=== PATIENT | male | born 1985 | race Caucasian/White ===

== ENCOUNTER 2019-11-23 09:28 | Observation (INO) ==
--- OUTSIDE RECORDS SUMMARY | 2019-11-23 09:31 | External Medical Summary | Continuity of Care Document ---
:1985 Author Name Magalis Abrams Address Unavailable Unavailable , Care Team Providers Name Role Phone Laurent Brian M.D. Unavailable [email or web address], [email or web address] Unavailable Unavailable Problems Active medical history not documented Allergies and Adverse Reactions Allergy history not documented Medications Medications not documented Procedures Procedures not documented Immunizations Immunizations not documented Plan of Treatment Planned Observations Planned Goals not documented Results No Known Results Results not documented
--- OUTSIDE RECORDS SUMMARY | 2019-11-23 09:32 | External Medical Summary | Continuity of Care Document ---
:1985 Author Name Magalis Abrams Address Unavailable Unavailable , Care Team Providers Name Role Phone Laurent Brian M.D. Unavailable [email or web address] PCP, UNKNOWN Unavailable Unavailable Problems Active medical history not documented Allergies and Adverse Reactions Allergy history not documented Medications Medications not documented Procedures Procedures not documented Immunizations Immunizations not documented Plan of Treatment Planned Observations Planned Goals not documented Results No Known Results Results not documented
--- NOTE | 2019-11-23 10:00 | Emergency Department Note ---
Impression & Plan Incarcerated inguinal hernia ED Provider Note INFORMANT: Patient ED PROVIDER(S): Juan Francisco Hernández MD CHIEF COMPLAINT: Left sided hernia PLAN: Disposition: Admitted Condition: Good MEDICAL DECISION MAKING: Patient presented with complaints of a left inguinal hernia. On physical examination this was nonreducible. Blood work was obtained. The patient initially declined analgesia but was eventually given Dilaudid and Zofran. I did place an urgent consultation with Dr. Whyte of general surgery. He did asked for a CT scan to be ordered. Triage Nursing notes reviewed and agree them. Vital Signs: reviewed and remarkable for no significant abnormalities Differential diagnosis: hernia, Testicular torsion, mass, infection, hydrocele, epididymitis, STI, trauma, intra-abdominal process, as well as other pathologies. Diagnostics interpreted by me: Laboratory testing reveals an unremarkable CBC and chemistry panel. Imaging studies: CT scan of the abdomen pelvis reveals an incarcerated left inguinal hernia. Consultation(s): General surgery HPI: The patient is a 34 year old male who presents to the Emergency Room with complaints of left inguinal hernia that is not reducing. This started last night and is persistent. He notes hernia there for a few years but it would always go back in place. The patient also notes the following associated symptoms, none. The patient has found no relieving factors. Current pain is rated as 10/10. Pt denies LOC, headache, fevers, chills, diaphoresis, visual changes, neck pain, chest pain, breathing difficulties, nausea, vomiting, abdominal pain, back pain, melena, hematochezia, urinary symptoms, numbness, weakness, lymphadenopathy, rash, or other complaints. ROS: See above HPI for pertinent positives & negatives. A total of 10 systems reviewed and were otherwise negative. PAST MEDICAL HISTORY:See Below hernia PAST SURGICAL HISTORY:See Below FAMILY HISTORY:See Below SOCIAL HISTORY:See Below +ETOH, +Tob HOME MEDICATIONS:See Below ALLERGIES:See Below PCN VITALS:See Below PHYSICAL EXAMINATION: GENERAL: Awake, alert, uncomfortable-appearing, in no distress HENT: Normocephalic, atraumatic. Oropharynx unremarkable. EYES: Normal conjunctiva. Sclera non-icteric. NECK: Inspection normal. Non-tender. Supple. No nuchal rigidity. FROM. No masses. RESPIRATORY: Clear to auscultation. No wheezes. No rales. Normal respiratory effort. CARDIAC: Normal rate. Normal rhythm. No murmurs. No rubs. Extremities warm and well perfused. Pulses equal. No JVD. GI: Soft, non-distended. No tenderness to palpation. No rebound or guarding. No masses. : Left non-reducible inguinal hernia present. TTP. MUSCULOSKELETAL: Atraumatic. Chest examination reveals no tenderness. The back is symmetrical on inspection without obvious abnormality. There is no CVA tenderness to palpation. No joint edema. LOWER EXTREMITIES: Calves are equal size bilaterally and non-tender. No edema. N o discoloration. NEURO: Normal sensorium. No sensory or motor deficits noted. SKIN: No rash or jaundice noted. ED COURSE: Critical Care: None Juan Francisco Hernández MD Past Med/Surg History Social History Smoking Status: Never smoker Second Hand Exposure: No; Do You Dip or Chew Tobacco: No; Tobacco Cessation Education Requested by Patient: No Hx Alcohol Use: Yes Hx Substance Use: No Preferred Language: French Communication Ability: Effective Head Of Geography Required: No Beliefs That Will Affect Care: None Current Living Situation: Significant Other Other Information That Helps Us Care for You: No Feels Safe at Home: Yes Safety Concerns: Feels Safe At This Time Allergies Allergies Allergy/AdvReac Type Severity Reaction Status Date / Time Penicillins Allergy Unknown RASH Unverified 11/30/11 15:57 scallops AdvReac Severe ANAPHYLAXIS Verified 11/30/11 20:56 Home Meds Home Medications Medication Instructions Recorded Confirmed None (Patient States No Home Meds) #0 11/30/11 Previous Rx's Medication Instructions Recorded ASPIRIN ENTERIC COATED (Ecotrin Or 325 mg PO BID #60 12/01/11 Generic) acetaminophen [Tylenol] 650 mg PO Q6H #30 cap 11/23/19 ibuprofen 400 mg PO Q8H PRN #30 tab 11/23/19 oxycodone 5 mg PO Q6H PRN #15 cap 11/23/19 Results & Data (ED) Vital Signs Vital Signs - 24 hr 11/23/19 09:32 11/23/19 12:33 Temperature 36.7 C Temperature Source Oral Pulse Rate 60 84 Respiratory Rate 18 18 Respiratory Depth Normal Blood Pressure 141/85 H 142/91 H Blood Pressure Mean 103 Pulse Oximetry 99 100 Oxygen Delivery Method Room Air Room Air Sepsis Recent Fever Within 48 Hours No Sepsis New/Unexplained Change in Mental Status N/A Sepsis Action Taken by Nursing No Action Required Laboratory Data Result diagrams: 11/23/19 11:03 11/23/19 11:03 Lab Results 11/23/19 11/23/19 11/23/19 Range/Units 11:03 11:03 11:03 WBC 8.13 (4.8-10.8) K/uL RBC 5.11 (4.7-6.1) M/uL Hgb 16.4 (14.0-18.0) g/dL Hct 47.2 (42-52) % MCV 92.4 (80-100) fL MCH 32.1 (25-34) pg MCHC 34.7 (32-36) g/dL RDW Std Deviation 43.9 (36.4-46.3) fL RDW Coeff of Reinaldo 13.0 (11.5-14.5) % Plt Count 227 (130-400) K/uL MPV 10.5 H (7.4-10.4) fL Immature Gran % (Auto) 0.7 % Neut % (Auto) 69.8 % Lymph % (Auto) 20.0 % Harmon % (Auto) 7.4 % Eos % (Auto) 1.4 % Baso % (Auto) 0.7 % Neut # (Auto) 5.67 (1.4-6.5) K/uL Lymph # (Auto) 1.63 (1.2-3.4) K/uL Harmon # (Auto) 0.60 H (0.11-0.59) K/uL Eos # (Auto) 0.11 (0-0.5) K/uL Baso # (Auto) 0.06 (0-0.2) K/uL Immature Gran # (Auto) 0.06 H (0.00-0.02) K/uL Sodium 137 (136-145) mmol/L Potassium 3.9 (3.5-5.1) mmol/L Chloride 103 (98-107) mmol/L Carbon Dioxide 30 (21-32) mmol/L Anion Gap 4.0 (3-11) BUN 13 (7-18) mg/dl Creatinine 0.89 (0.6-1.4) mg/dl Est Cr Clr Drug Dosing 129.6 ml/min Est GFR ( Amer) 130.2 Est GFR (Non-Af Amer) 112.3 BUN/Creatinine Ratio 14.2 (10-20) Glucose 99 (70-99) mg/dl Lactate 0.6 (0.4-2.0) mmol/L Calcium 9.1 (8.5-10.1) mg/dl Total Bilirubin 1.2 H (0.2-1) mg/dl AST 23 (15-37) U/L ALT 25 (12-78) U/L Alkaline Phosphatase 57 (45-117) U/L Total Protein 7.8 (6.4-8.2) gm/dl Albumin 3.8 (3.4-5.0) gm/dl Globulin 4.0 (2.5-4.0) gm/dl Albumin/Globulin Ratio 1.0 (0.9-2) COVID-19 Eval Order SARS-CoV-2, RNA, NAAT (NEGATIVE) 11/23/19 11/23/19 Range/Units 12:25 12:25 WBC (4.8-10.8) K/uL RBC (4.7-6.1) M/uL Hgb (14.0-18.0) g/dL Hct (42-52) % MCV (80-100) fL MCH (25-34) pg MCHC (32-36) g/dL RDW Std Deviation (36.4-46.3) fL RDW Coeff of Reinaldo (11.5-14.5) % Plt Count (130-400) K/uL MPV (7.4-10.4) fL Immature Gran % (Auto) % Neut % (Auto) % Lymph % (Auto) % Harmon % (Auto) % Eos % (Auto) % Baso % (Auto) % Neut # (Auto) (1.4-6.5) K/uL Lymph # (Auto) (1.2-3.4) K/uL Harmon # (Auto) (0.11-0.59) K/uL Eos # (Auto) (0-0.5) K/uL Baso # (Auto) (0-0.2) K/uL Immature Gran # (Auto) (0.00-0.02) K/uL Sodium (136-145) mmol/L Potassium (3.5-5.1) mmol/L Chloride (98-107) mmol/L Carbon Dioxide (21-32) mmol/L Anion Gap (3-11) BUN (7-18) mg/dl Creatinine (0.6-1.4) mg/dl Est Cr Clr Drug Dosing ml/min Est GFR ( Amer) Est GFR (Non-Af Amer) BUN/Creatinine Ratio (10-20) Glucose (70-99) mg/dl Lactate (0.4-2.0) mmol/L Calcium (8.5-10.1) mg/dl Total Bilirubin (0.2-1) mg/dl AST (15-37) U/L ALT (12-78) U/L Alkaline Phosphatase (45-117) U/L Total Protein (6.4-8.2) gm/dl Albumin (3.4-5.0) gm/dl Globulin (2.5-4.0) gm/dl Albumin/Globulin Ratio (0.9-2) COVID-19 Eval [facility] SARS-CoV-2, RNA, NAAT NEGATIVE (NEGATIVE) Administered Medications Hydromorphone HCl (Hydromorphone Inj 0.5 Mg/0.5 Ml Syr) 0.5 mg IV Q15M PRN PRN Reason: Pain Stop: 12/07/19 11:42 Last Admin: 11/23/19 12:13 Dose: 0.5 mg Documented by: [id number] Acetaminophen ([facility]) 1,000 mg in 100 mls @ 400 mls/hr IV Q8H BRENDEN Stop: 11/26/19 15:48 Last Admin: 11/23/19 17:23 Dose: 400 mls/hr Documented by: [id number] Oxycodone HCl (Oxycodone Hcl Ir 5 Mg Tab (Immediate Release)) 5 mg PO Q6H PRN PRN Reason: Pain Stop: 12/07/19 15:48 Last Admin: 11/23/19 17:22 Dose: 5 mg Documented by: [id number] Discontinued Medications Bupivacaine HCl (Bupivacaine 0.5 % 5 Mg/1 Ml Mpf 30ml Vial) Confirm Administered Dose 30 ml .ROUTE .STK-MED ONE Stop: 11/23/19 12:53 Last Admin: 11/23/19 14:13 Dose: 30 ml Documented by: [id number] Fentanyl Citrate (Fentanyl Citrate 100 Mcg/2 Ml Vial) 50 mcg IV Q5M PRN PRN Reason: PACU Use Only-Pain Stop: 11/23/19 20:52 Last Admin: 11/23/19 15:06 Dose: 50 mcg Documented by: [id number] Admin: 11/23/19 14:50 Dose: 50 mcg Documented by: [id number] Sodium Chloride (Nss 1000ml) 1,000 mls @ 999 mls/hr IV .Q1H1M ONE Stop: 11/23/19 11:06 Last Infusion: 11/23/19 16:04 Dose: 0 mls/hr Documented by: [id number] Admin: 11/23/19 11:36 Dose: 999 mls/hr Documented by: [id number] Cefazolin Sodium (Ancef 2000mg) 2,000 mg in 15 mls @ 3.75 mls/min IV ONCE ONE Stop: 11/23/19 13:46 Last Admin: 11/23/19 13:24 Dose: 3.75 mls/min Documented by: [id number] Ioversol (Ioversol 100ml) 93 ml IV ONCE ONE Stop: 11/23/19 12:00 Last Admin: 11/23/19 11:59 Dose: 93 ml Documented by: [id number] Ondansetron HCl (Ondansetron Inj 2 Mg/Ml 2 Ml Vial) 4 mg IV NOW STA Stop: 11/23/19 11:44 Last Admin: 11/23/19 12:13 Dose: 4 mg Documented by: [id number] Discharge Plan Visit Data Chief Complaint: Testicular Pain Stated Complaint: PAINFUL HERNIA ED Provider: Juan Francisco Hernández Discharge Problem: Incarcerated inguinal hernia Patient Disposition: Admitted As Inpatient Condition: Good Discharge Instructions Interventions: ED Discharge Assessment Last Done: 11/23/19 12:33
[2019-11-23] MEDS ORDERED: SODIUM CHLORIDE 0.9% 1000ML 1,000 ML IV ONE (10:06)
--- NOTE | 2019-11-23 11:04 | History & Physical Report ---
Date of Service November 23, 2019 Assessment & Plan (1) Incarcerated inguinal hernia: 34-year-old male with incarcerated left inguinal hernia Plan for diagnostic laparoscopy, laparoscopic left inguinal hernia repair, possible open, possible bowel resection The risk of the procedure were discussed to include but not limited to bleeding, infection, open surgery, damage to surrounding structures, recurrence, need for future more extensive surgery, bowel resection, chronic pain, and the risk of anesthesia History of Present Illness Primary Care Provider: NO PCP 34-year-old male with known left inguinal hernia presented to the emergency department with incarcerated hernia. He has had the hernia for several years. It occasionally bulges out but he is able to reduce it. Last night he came home and noted that it was bulging out more than normal. He tried for several hours to reduce it but was unsuccessful. He then started having significant pain. He denies any vomiting or signs or symptoms of obstruction. He denies any redness in the area. He has never had any abdominal surgery before. He is otherwise healthy. He does smoke marijuana. Allergies Allergy/AdvReac Type Severity Reaction Status Date / Time Penicillins Allergy Unknown RASH Unverified 11/30/11 15:57 scallops AdvReac Severe ANAPHYLAXIS Verified 11/30/11 20:56 Home Medications Home Medications Medication Instructions Recorded Confirmed Type None (Patient States No Home Meds) #0 11/30/11 History ASPIRIN ENTERIC COATED (Ecotrin Or 325 mg PO BID #60 12/01/11 Rx Generic) Past Med/Surg History Social History Smoking Status: Never smoker Feels Safe at Home: Yes Physical Exam Constitutional: WD/WN, vitals as above Eyes: PERRL, conjunctivae normal, anicteric sclerae ENMT: external ear and nose normal, oropharynx normal Neck: trachea midline, no thyromegaly Respiratory: normal respiratory effort, lungs clear to auscultation Cardiovascular: RRR, no murmur, no edema Gastrointestinal (Abdomen): Percussion/Palpation: + abdomen tender, abdomen soft and + hernia (Incarcerated moderate size left inguinal hernia. I was unable to reduce this after 5 to 10 minutes of attempt. No erythema or signs of strangulation.); no guarding, abdomen not rigid and no hepatosplenomegaly Results & Data Results & Data ([facility]) Vital Signs (Past 12 Hours) Vital Signs Temp Pulse Resp BP Pulse Ox 11/23/19 09:32 36.7 C 60 18 141/85 H 99 PG Care Time/CCT Total # of Minutes Spent Total Time Spent with Patient: Total time spent is greater than 50% in coordination of care (as documented) at patient's floor/unit and/or counseling patient: Coding Level of Care Code 79173 Initial Inpt Care Lvl 2 Diagnoses Incarcerated inguinal hernia K40.30
[2019-11-23 11:19] LABS: Basophils # (auto) 0.06 K/uL (0-0.2); Basophils % (auto) 0.7 %; Eosinophils # (auto) 0.11 K/uL (0-0.5); Eosinophils % (auto) 1.4 %; Hematocrit (blood only) 47.2 % (42-52); Hemoglobin 16.4 g/dL (14.0-18.0); Immature Granulocytes # (auto) 0.06 K/uL (0.00-0.02); Immature Granulocytes % (auto) 0.7 %; Lymphocytes # (auto) 1.63 K/uL (1.2-3.4); Mean Corpuscular Hemoglobin 32.1 pg (25-34); Mean Corpuscular Hgb Conc 34.7 g/dL (32-36); Mean Corpuscular Volume 92.4 fL (80-100); Mean Platelet Volume 10.5 fL (7.4-10.4); Monocytes % (auto) 7.4 %; Neutrophils # (auto) 5.67 K/uL (1.4-6.5); Neutrophils % (auto) 69.8 %; Platelet Count 227 K/uL (130-400); RDW Standard Deviation 43.9 fL (36.4-46.3); Red Blood Count 5.11 M/uL (4.7-6.1); White Blood Count 8.13 K/uL (4.8-10.8)
[2019-11-23 11:38] LABS: Albumin Level 3.8 gm/dl (3.4-5.0); BUN Creatinine Ratio 14.2 (10-20); Calcium 9.1 mg/dl (8.5-10.1); Creatinine Clr Calc Pharmacy 129.6 ml/min; Est GFR (African American) 130.2; Est GFR (Non-African American) 112.3; Potassium 3.9 mmol/L (3.5-5.1)
[2019-11-23 11:42] LABS: Bilirubin,Total 1.2 mg/dl (0.2-1); Total Protein 7.8 gm/dl (6.4-8.2)
[2019-11-23] MEDS ORDERED: ONDANSETRON INJ 2 MG/ML 2 ML VIAL IV STA (11:43)
[2019-11-23] MEDS ORDERED: HYDROmorphone INJ 0.5 MG/0.5 ML SYR IV PRN (11:43)
[2019-11-23] MEDS ORDERED: IOVERSOL 100ml IV ONE (11:59)
--- NOTE | 2019-11-23 12:13 | CT Scan Report ---
CT OF THE ABDOMEN AND PELVIS WITH CONTRAST CLINICAL HISTORY: Left incarcerated inguinal hernia COMPARISON STUDY: CT of the abdomen and pelvis November 30, 2011 TECHNIQUE: Following IV administration of 93 mL of Optiray-320, axial images of the abdomen and pelvi s were obtained from the lung bases to the proximal femurs. Images were reviewed in the axial, sagitt al, and coronal planes. IV contrast was administered without complication. Automated exposure contro l was utilized for the study. A dose lowering technique was utilized adhering to the principles of A JORY. CT DOSE: 611.35 mGycm FINDINGS: Lung bases are unremarkable. Note is made of a 1.1 cm right hepatic dome hypodense lesion w ith nodular peripheral enhancement. This may reflect a hemangioma. A 9 mm right hepatic dome lesion f avors a cyst. These lesions are difficult to characterize given their small size. Liver morphology is normal. The spleen, adrenal glands, kidneys and pancreas are normal. There is no hydronephrosis. The re is no biliary or pancreatic ductal dilatation. The caliber and wall thickness of small and large b owel are normal. There is no evidence for a bowel obstruction. The appendix is normal. Note is made o f a moderate to large fat-containing left inguinal hernia. There is also fluid and infiltration withi n the hernia sac. Infiltration extends into the inguinal canal and left lower quadrant. There is no r im-enhancing fluid collection is suggest an abscess. There is no lymphadenopathy. No suspicious osseo us lesions are noted. Major vasculature is patent. IMPRESSION: 1. Moderate to large fat and fluid containing left inguinal hernia. Infiltration within the hernia sa c and left inguinal canal which extends into the left lower quadrant. Findings are consistent with hi story of incarcerated hernia. 2. No bowel obstruction. Normal appendix. No bowel wall thickening. ACT 112: Negative or not required by law. Electronically signed by: Melquiades Mccray M.D. 11/23/2019 12:12 PM
[2019-11-23] MEDS ORDERED: ONDANSETRON INJ 2 MG/ML 2 ML VIAL ONE (12:50)
[2019-11-23] MEDS ORDERED: fentaNYL citrate 100 MCG/2 ML VIAL ONE (12:50)
[2019-11-23] MEDS ORDERED: DEXAMETHASONE SOD INJ 4 MG/ML VIAL ONE (12:50)
[2019-11-23] MEDS ORDERED: MIDAZOLAM HCL 1 MG/ML 2ML VIAL ONE (12:50)
[2019-11-23] MEDS ORDERED: PROPOFOL IV EMULSION 10 MG/ML 20 ML VIAL IV ONE (12:50)
[2019-11-23] MEDS ORDERED: LIDOCAINE HCL 2% 2 ML VIAL/AMP(20MG/ML) INFIL ONE (12:50)
[2019-11-23] MEDS ORDERED: NEOSTIGMINE METHYLSULFATE 5 MG/5 ML SYR ONE (12:50)
[2019-11-23] MEDS ORDERED: GLYCOPYRROLATE 0.2 MG/ML VIAL ONE ×2 (12:50→14:12)
[2019-11-23] MEDS ORDERED: ATROPINE SULFATE 0.1 MG/ML 10ML SYR IV PRN (12:52)
[2019-11-23] MEDS ORDERED: HYDROmorphone INJ 2 MG/ML SYR/VIAL IV PRN (12:52)
[2019-11-23] MEDS ORDERED: ePHEDrine sulfate 50 MG/ML AMP IV PRN (12:52)
[2019-11-23] MEDS ORDERED: BUPIVACAINE 0.5 % 5 MG/1 ML MPF 30ML VIAL ONE (12:52)
[2019-11-23] MEDS ORDERED: ONDANSETRON INJ 2 MG/ML 2 ML VIAL IV PRN ×2 (12:52→15:49)
--- NOTE | 2019-11-23 12:52 | Anesthesiology Consultation ---
Date of Service November 23, 2019 Assessment & Plan ASA ASA2E Proposed Anesthesia Anesthesia Type: General Risk / Benefits Reviewed With: PT / POA / Parent / Guardian, Accepts Plan and Informed Consent Obtained History Surgery Operation Date: 11/23/19 14:00 Proposed Procedures p Laparoscopic Inguinal Hernia Repair(Left) - Lorne Whyte DO, FACS Height/Weight Height: 6 ft Weight: 81.1 kg Allergies Allergy/AdvReac Type Severity Reaction Status Date / Time Penicillins Allergy Unknown RASH Unverified 11/30/11 15:57 scallops AdvReac Severe ANAPHYLAXIS Verified 11/30/11 20:56 Medications Home Medications Medication Instructions Recorded Confirmed Last Taken None (Patient States No Home Meds) #0 11/30/11 Unknown ASPIRIN ENTERIC COATED (Ecotrin Or 325 mg PO BID #60 12/01/11 Unknown Generic) Active Medications Generic Name Dose Route Start Last Admin Trade Name Freq PRN Reason Stop Dose Admin Hydromorphone HCl 0.5 mg 11/23/19 11:43 11/23/19 12:13 Hydromorphone Inj 0.5 Mg/0.5 Ml Syr IV 12/07/19 11:42 0.5 mg Q15M PRN Administration Pain Exercise / Class Metabolic Activity II 4-5 Yardwork/Stairs/Walk up hill Past Anesthesia History No Hx of Anesthesia Complications and No Family Hx of Anesthesia Complications History of PONV No Hx of PONV and No Hx of Motion Sickness Social History Smoking Status: Never smoker Do You Dip or Chew Tobacco: No Hx Alcohol Use: Yes alcohol intake frequency: 0-2 drinks per day Hx Substance Use: No substance use type: does not use Review of Systems denies fever/cough/ colds/ chest pain/ SOB/ SAVANNA Constitutional: no fever and no chills Respiratory: no cough and no dyspnea denies SAVANNA Cardiovascular: no chest pain and no dyspnea on exertion Physical Exam Vital Signs Last Vital Signs Temp 36.7 C 11/23/19 09:32 Pulse 84 11/23/19 12:33 Resp 18 11/23/19 12:33 BP 142/91 H 11/23/19 12:33 Pulse Ox 100 11/23/19 12:33 ENMT Mouth: no TMJ abnormality and no dentition abnormality Thyromental Distance: > or= 3.5 Finger Breadths Mallampati Class: II Neck neck extension not limited Respiratory normal respiratory effort; no respiratory distress Auscultation: lungs clear to auscultation bilaterally Cardiovascular Rate/Rhythm: regular rate and regular rhythm Neurologic moves all extremities Psychiatric Orientation: alert and oriented x 3 Testing Laboratory Results 11/23/19 11:03 11/23/19 11:03
[2019-11-23] MEDS ORDERED: CEFAZOLIN 2000MG 2,000 MG/15 ML SYR IV ONE (13:43)
[2019-11-23] MEDS ORDERED: ROCURONIUM BROMIDE 10 MG/ML 5 ML VIAL IV ONE (14:04)
--- NOTE | 2019-11-23 14:26 | Operative Report ---
PG Post Operative Report Pre & Post Diagnosis Operation Date: 11/23/19 14:00 Pre-Op Diagnosis: Incarcerated left inguinal hernia Post-Op Diagnosis: Incarcerated left inguinal hernia I identified the patient and participated in the time-out.: Yes Procedure Operation Date: 11/23/19 14:00 Actual Procedures p Diagnostic Laparoscopy, Reduction of Incarcerated Inguinal Hernia, Left Laparoscopic Inguinal Hernia Repair with Mesh(Left) - Lorne Whyte DO, CHAVO Surgeon Lorne Whyte DO, CHAVO Manufacturing Development Engineer Armen Betancourt Estimated Blood Loss 5 Findings Consistent with Post-Op Diagnosis Diagnostic laparoscopy performed, incarcerated omentum reduced, appeared viable. Laparoscopic totally extraperitoneal left inguinal hernia repair performed with pro-supplier development manager mesh. Large direct hernia sac reduced. Reentered laparoscopically and omentum viable, hernia defect repaired. No evidence of right inguinal hernia at the time of surgery. Specimens None Anesthesia Type General Complications none Disposition Accompanied Patient To Recovery: No Disposition: Recovery Room Indications 34-year-old male presented to the emergency department with 6 hours of left groin bulge and pain consistent with an incarcerated left inguinal hernia. CT scan revealed incarcerated omentum within a left inguinal hernia. Plan for diagnostic laparoscopy, laparoscopic left inguinal hernia repair, possible open, possible bowel resection. The risks of the procedure were discussed, all questions were answered, and the patient agreed to proceed with surgery as planned. Description of Procedure The patient was properly identified, consented, and taken to the operating room where he was placed in the supine position. General endotracheal anesthesia was induced. SCDs and a safety belt were placed. A dunaway catheter was placed. Preoperative antibiotics were administered. The patient's groins and abdomen were prepped and draped in the standard sterile fashion. Surgical timeout was performed and all parties were in agreement that this was the correct patient and procedure to be performed and we continued as planned. An incision was made in the right upper quadrant and the Veress needle was inserted. Saline drop test confirmed entry into the peritoneum. The abdomen was insufflated with carbon dioxide which the patient tolerated without incident. The abdomen was then entered using the Optiview technique and a 5 mm trocar. The laparoscope was inserted and no damage from initial trocar or Veress needle placement was noted. There was evidence of a left indirect inguinal hernia containing omentum. I was unable to reduce this with external pressure in the groin, and an additional 5 mm port was then placed in the left upper quadrant. Using external pressure along with reduction of the omentum laparoscopically we were able to reduce the incarcerated omentum. The omentum was examined and appeared viable. There was no bowel contained within the hernia. No other gross abnormalities were noted within the 4 quadrants of the abdomen. A quick examination of the right inguinal area revealed no evidence of inguinal hernia at the time of surgery. At this point I elected to convert to my standard totally extraperitoneal hernia repair. A transverse infraumbilical incision was made to the right of midline with electrocautery and deepened down to the fascia with blunt dissection. A transverse incision was made in the anterior rectus sheath on the right. The rectus muscle was pulled laterally exposing the posterior rectus sheath. A large Josselin was used to bluntly dissect the preperitoneal space down to the pubic symphysis. This was then replaced with a laparoscopic preperitoneal dissection balloon, which was inflated under direct visualization and held in place for approximately 30 seconds. This was then removed and the preperitoneal space was insufflated with carbon dioxide which the patient tolerated without incident. Two 5 mm ports were then placed in the midline. Dissection started on the left, beginning laterally at the anterior superior iliac spine. Sonu's ligament was then dissected medially. The cord structures were circumferentially dissected. A large indirect inguinal hernia was noted. It was dissected away from the cord structures. The hernia sac was completely reduced. Progrip mesh was placed on the left and covered the direct, indirect, and femoral spaces. The mesh was held in place, the ports were removed, and the space was allowed to collapse. We then reentered the abdomen laparoscopically and the hernia defect was repaired. The omentum was again examined and appeared healthy. Laparoscopy was ceased and the abdomen was allowed to collapse. The anterior rectus sheath fascia was closed with 3-0 Vicryl suture. The skin of all port sites were closed with 4-0 Monocryl subcuticular suture, and Dermabond was placed over the incisions. The patient was extubated in the operating room and taken to the PACU for recovery without apparent incident. Any air in the scrotum was reduced, and the testicles were confirmed to be in the scrotum. All sponge, instrument, and nee dle counts were correct at the conclusion of the procedure. The patient tolerated the procedure well. The physician's digital assistant was present and scrubbed for the entirety of the case. He was critical in positioning the patient, prepping and draping, retraction and exposure, driving the laparoscope, reduction of the hernia, closure the incisions, and placement of the dressings. I attest to the content of the Intraoperative Record and any orders documented therein. Any exceptions are noted below.
[2019-11-23] MEDS ORDERED: KETOROLAC 30 MG/ML VIAL ONE (14:45)
[2019-11-23] MEDS: fentaNYL citrate 100 MCG/2 ML VIAL IV PRN ×2 (14:50→15:06)
--- NOTE | 2019-11-23 14:54 | Anesthesiology Progress Note ---
Date of Service November 23, 2019 Anesthesia Post Procedure Vital Signs Vital Signs: Temp Pulse Pulse Resp BP BP Pulse Ox 11/23/19 14:50 54 L 14 123/76 97 11/23/19 14:40 54 L 16 134/64 100 11/23/19 14:34 36.8 C 69 16 128/80 98 11/23/19 12:33 84 18 142/91 H 100 11/23/19 09:32 36.7 C 60 18 141/85 H 99 Transfer of Care Handoff Completed per policy Notes Mental Status: alert / awake / arousable and participated in evaluation Patient Amnestic to Procedure: Yes Nausea / Vomiting: adequately controlled Pain: adequately controlled Airway Patency, RR, SpO2: stable & adequate BP & HR: stable & adequate Hydration State: stable & adequate Anesthetic Complications: no major complications apparent and Pt Satisfied with anesthetic care
[2019-11-23] MEDS ORDERED: ACETAMINOPHEN 1,000 MG/100 ML VIAL IV SCH (15:49)
[2019-11-23] MEDS ORDERED: OXYCODONE HCL IR 5 MG TAB (IMMEDIATE RELEASE) PO PRN (15:49)
[2019-11-23] MEDS ORDERED: MoRPHine SULFATE 2 MG/ML CARP IV PRN (15:49)
[2019-11-23] MEDS ORDERED: KETOROLAC TROMETHAMINE 15 MG/ML VIAL IV SCH (22:00)
--- NOTE | 2019-11-26 14:55 | Discharge Summary (DS) ---
ADMISSION DIAGNOSIS: Incarcerated left inguinal hernia. DISCHARGE DIAGNOSIS: Same. HOSPITAL COURSE: This is a 34-year-old male who presented to [facility] Emergency Department secondary to incarcerated hernia in the left inguinal region. Prior to admission, the patient noted he had a hernia for several years that occasionally bulges out bout he was able to reduce it. The patient noted that prior to presentation to the Emergency Department, he had more of a hernia bulge than normal and he was unable to reduce it. He started having some significant abdominal pain prompting his presentation to [facility] Emergency Department. In the Emergency Department the patient did have a CT scan of his abdomen and pelvis. This demonstrated he had a large fat-containing left inguinal hernia. This was felt to be incarcerated, so on date of admission, Dr. Whyte took the patient to the operating room where he performed a laparoscopic reduction and repair of this inguinal hernia. Postoperatively the patient did not have any complications, was tolerating a regular diet, was able to void and he was deemed stable for discharge home the same day of his procedure, which was 11/23/2019. The patient did not have any home medications changed. He was told he could take Tylenol and Motrin for pain. He was also provided a prescription for a short course of oxycodone 5 mg every 6 hours as needed for pain. He was provided with appropriate wound care instructions. He was also told not to lift any objects heavier than 10 pounds. He was told he could shower in approximately 24 hours, but not take any tub baths. He is told to call the office of Dr. Whyte to arrange a 2-week followup appointment.
== END 2019-11-23 18:40 | disposition home or self-care (01) ==
LOC: ED 09:28 → 3N 12:39 → OR 12:39